=== PATIENT | male | born 1955 | race Caucasian/White ===

== ENCOUNTER 2019-04-27 12:38 | Emergency (ER) | payer OTHER ==
[~2019-04-27] VITALS: Ht 162.6 cm; Wt 80.7 kg
[2019-04-27 12:44] VITALS: BP 112/77
--- NOTE | 2019-04-27 12:44 | NUR ---
Patient ambulated to bed 9 with family. RN evaluating patient at bedside.
--- NOTE | 2019-04-27 12:53 | NUR ---
Dr. Echeverria is evaluating the patient at bedside.
[2019-04-27] MEDS ORDERED: KETOROLAC 30 MG/ML VIAL IVP ONE (13:00)
[2019-04-27] MEDS ORDERED: NACL 0.9% 1,000 ML IV ONE (13:00)
--- NOTE | 2019-04-27 13:00 | NUR ---
BIB FAMILY C/O BILATERAL UPPER QUADRANT ABDOMINAL PAIN X 3 DAYS. DENIES N/V/D, CONSTIPATION, FEVER, OR CHILLS. LBM WAS THIS MORNING. PATIENT STATES PAIN OF 7/10 AT THIS TIME; VSS; PATIENT POSITIONED FOR COMFORT; HOB ELEVATED; BEDRAILS UP X1; BED DOWN. ER MD MADE AWARE OF PT STATUS.
--- NOTE | 2019-04-27 13:25 | NUR ---
Pepper molina in ED - 04/27/19 at 1331 by CHERYL XRNATHAN IS AT BEDSIDE.
--- NOTE | 2019-04-27 13:26 | NUR ---
X-Ray at bedside.
--- NOTE | 2019-04-27 13:30 | NUR ---
PT WAS TAKEN TO CT SCAN VIA WHEELCHAIR ASSISTED BY FLIGHT ENGINEER.
[2019-04-27 13:31] LABS: BASOPHILS % (AUTO) 0.5 % (0.0-2.0); EOSINOPHILS # (AUTO) 0.1 K/uL (0-0.4); EOSINOPHILS % (AUTO) 2.2 % (0.0-4.0); HEMATOCRIT 43.5 % (36-52); HEMOGLOBIN 14.8 g/dL (12.0-18.0); LYMPHOCYTES # (AUTO) 0.8 K/uL (2.0-11.5); LYMPHOCYTES % (AUTO) 14.5 % (20.5-51.1); MEAN CORPUSCULAR HEMOGLOBIN 30 pg (27-31); MEAN CORPUSCULAR HGB CONC 34 g/dL (33-37); MEAN CORPUSCULAR VOLUME 89.3 fL (80-94); MONOCYTES # (AUTO) 0.7 K/uL (0.8-1.0); MONOCYTES % (AUTO) 11.8 % (1.7-9.3); PLATELET COUNT (AUTO) 197 K/uL (140-450); RED BLOOD CELL COUNT(AUTO) 4.87 MIL/uL (4.20-6.10); RED CELL DISTRIBUTION WIDTH 13.6 % (11.6-13.7); WHITE BLOOD COUNT (AUTO) 5.6 K/uL (4.8-10.8)
--- NOTE | 2019-04-27 13:40 | NUR ---
Pt returned from CT and placed in bed 9.
[2019-04-27 14:05] LABS: ALBUMIN 3.6 g/dL (3.4-5.0); CARBON DIOXIDE 27.6 mmol/L (21-32); TOTAL BILIRUBIN 0.6 mg/dL (0.0-1.0)
[2019-04-27 14:06] LABS: ANION GAP 12.8 (8-16); POTASSIUM 3.4 mmol/L (3.5-5.1)
[2019-04-27] MEDS ORDERED: PANTOPRAZOLE 40 MG INJ VIAL IVP ONE (14:10)
--- NOTE | 2019-04-27 14:28 | NUR ---
PT LAYING IN BED, FAMILY AT BEDSIDE. VSS. REPORTS 5/10 UPPER ABD PAIN, DENIES N/V. ADMINISTERED PROTONIX IVP WITH EDUCATION, PT VERBALIZED UNDERSTANDING, TOLERATED WELL. ALL NEEDS MET.
[2019-04-27 16:55] VITALS: BP 131/81
--- NOTE | 2019-04-27 16:55 | NUR ---
Patient discharged with v/s stable. Written and verbal after care instructions given and explained. Patient alert, oriented and verbalized understanding of instructions. Ambulatory with steady gait. All questions addressed prior to discharge. ID band removed. Patient advised to follow up with PMD. Rx of PROTONIX, CARAFATE given. Patient educated on indication of medication including possible reaction and side effects. Opportunity to ask questions provided and answered.
== END 2019-04-27 16:55 | disposition home or self-care (01) ==
LOC: MED 12:38
DX: K29.70 Gastritis, unspecified, without bleeding (principal); I10 Essential (primary) hypertension; Z90.49 Acquired absence of other specified parts of digestive tract
CPT/HCPCS: 36415; 71045; 74176; 80053; 83690; 84484; 85025; 93005; 96361; 96374; 96375; 99284; C9113; J1885; Q0092; J7030